=== PATIENT | female | born 1990 | race Two or more races ===

== ENCOUNTER 2017-04-22 13:23 | Emergency (ER) | payer OTHER ==
[2017-04-22 14:12] LABS: BILIRUBIN,URINE NEGATIVE (NEGATIVE); GLUCOSE, URINE (UA) NEGATIVE (NEGATIVE); KETONES,URINE (UA) 40 mg/dL (NEGATIVE); LEUKOCYTE ESTERASE, URINE NEGATIVE (NEGATIVE); NITRITE,URINE NEGATIVE (NEGATIVE); OCCULT BLOOD,URINE NEGATIVE (NEGATIVE); PROTEIN,URINE NEGATIVE (NEGATIVE); UROBILINOGEN,URINE 0.2 (NORMAL) E.U./dL (NORMAL)
[2017-04-22 14:13] LABS: CLARITY,URINE CLEAR (CLEAR)
[2017-04-22 14:16] LABS: HCG UR QUAL NEGATIVE
[2017-04-22 14:24] LABS: BASOPHILS % (AUTO) 0.2 %; EOSINOPHILS # (AUTO) 0.6 10^3/uL (0.0-0.7); EOSINOPHILS % (AUTO) 9.6 %; HGB - HEMOGLOBIN 16.2 g/dL (12.0-16.0); LYMPHOCYTES # (AUTO) 1.4 10^3/uL (1.5-3.5); MEAN CORPUSCULAR HEMOGLOBIN 30.3 pg (27.0-31.0); MEAN CORPUSCULAR HGB CONC 33.7 g/dL (32.0-36.0); MEAN CORPUSCULAR VOLUME 90.1 fL (81.0-99.0); MEAN PLATELET VOLUME 7.8 fL (7.9-10.8); MONOCYTES # (AUTO) 0.4 10^3/uL (0.0-1.0); MONOCYTES % (AUTO) 6.1 %; NEUTROPHILS # (AUTO) 3.7 10^3/uL (1.5-6.6); NEUTROPHILS % (AUTO) 61.1 %; PLT - PLATELET COUNT 204 10^3/uL (130-450); RED BLOOD COUNT 5.33 10^6/uL (4.20-5.40); RED CELL DISTRIBUTION WIDTH 14.1 % (12.0-15.0)
[2017-04-22 14:32] LABS: ALBUMIN 4.2 g/dL (3.2-5.5); ALBUMIN/GLOBULIN RATIO 1.9 (1.0-2.2); BILIRUBIN,TOTAL 1.5 mg/dL (0.2-1.0); CALCIUM 9.3 mg/dL (8.5-10.3); CREATININE 0.7 mg/dL (0.4-1.0); TOTAL PROTEIN 6.4 g/dL (6.7-8.2)
[2017-04-22] MEDS ORDERED: MAG HYDROX/AL HYDROX/SIMETH 30 ML UDC PO STA (15:23)
[2017-04-22] MEDS ORDERED: LIDOCAINE VISCOUS 2% 15 ML UDC MM STA (15:23)
--- NOTE | 2017-04-22 15:29 | ED Physician Documentation ---
PD HPI ABD PAIN - Stated complaint Stated Complaint: ABD PX - Chief complaint Chief Complaint: Abd Pain - History obtained from History obtained from: Patient, Family - History of Present Illness Timing - onset: Other (5 days of waxing and waning upper abdominal pain That is sharp and nonradiating and that worsens after eating and is associated with decreased appetite and loose stools without blood. She has no history of abdominal surgeries. She has been on the keto diet for 6 weeks.) Review of Systems Constitutional: denies: Fever, Chills Cardiac: denies: Chest pain / pressure, Palpitations Respiratory: denies: Dyspnea, Cough PD PAST MEDICAL HISTORY - Present Medications Home Medications: Ambulatory Orders Medication Instructions Recorded Confirmed Magnesium Oxide [Magnesium] 500 mg PO 04/22/17 Omeprazole [PriLOSEC] 20 mg PO DAILY #14 capsule 04/22/17 Pnv95/Ferrous Fumarate/FA 1 each PO 04/22/17 [ Tablet] Potassium Chloride 20 meq PO 04/22/17 - Allergies Allergies/Adverse Reactions: Allergies Allergy/AdvReac Type Severity Reaction Status Date / Time No Known Drug Allergies Allergy Verified 04/22/17 13:42 PD ED PE NORMAL - Vitals Vital signs reviewed: Yes - General General: Alert and oriented X 3, No acute distress - Abdomen Abdomen: Normal bowel sounds, Soft, Other (Very mild upper abdominal tenderness that does not lateralize, negative Arnold sign, no peritoneal signs.) - Neuro Neuro: Alert and oriented X 3, Normal speech - Psych Psych: Normal mood, Normal affect Results - Vitals Vitals: Vital Signs - 24 hr 04/22/17 04/22/17 13:39 15:41 Temperature 36.5 C Heart Rate 95 82 Respiratory 16 12 Rate Blood Pressure 124/76 106/68 O2 Saturation 99 100 Oxygen O2 Source Room air - Labs Labs: Laboratory Tests 04/22/17 04/22/17 04/22/17 14:09 14:14 14:14 WBC 6.0 RBC 5.33 Hgb 16.2 H Hct 48.0 H MCV 90.1 MCH 30.3 MCHC 33.7 RDW 14.1 Plt Count 204 MPV 7.8 L Neut # 3.7 Lymph # 1.4 L Hubbard # 0.4 Eos # 0.6 Baso # 0.0 Absolute Nucleated RBC 0.00 Nucleated RBC % 0.0 Sodium 135 Potassium 3.5 Chloride 101 Carbon Dioxide 23 Anion Gap 11.0 BUN 16 Creatinine 0.7 Estimated GFR (MDRD) 102 Glucose 91 Calcium 9.3 Total Bilirubin 1.5 H AST 21 ALT 19 Alkaline Phosphatase 75 Total Protein 6.4 L Albumin 4.2 Globulin 2.2 Albumin/Globulin Ratio 1.9 Lipase 14 L Urine Color YELLOW Urine Clarity CLEAR Urine pH 6.0 Ur Specific [place] 1.010 Urine Protein NEGATIVE Urine Glucose (UA) NEGATIVE Urine Ketones 40 H Urine Occult Blood NEGATIVE Urine Nitrite NEGATIVE Urine Bilirubin NEGATIVE Urine Urobilinogen 0.2 (NORMAL) Ur Leukocyte Esterase NEGATIVE Ur Microscopic Review NOT INDICATED Urine Culture Comments NOT INDICATED Urine HCG, Qual NEGATIVE PD MEDICAL DECISION MAKING - ED course ED course: She changed her diet and has upper abdominal pain with fairly benign examination. She had complete relief with a GI cocktail here which corroborates with the diagnosis of gastritis. The patient and family were counseled as to the diagnosis and need for follow- up. I counseled the patient with regard to signs and symptoms that would necessitate an urgent reevaluation in the emergency department. They understand they are welcome to return at any time if worse or if not improving as expected. This document was made in part using voice recognition software. While efforts are made to proofread this documents, sound alike and grammatical errors may occur. Departure - Departure Disposition: 01 Home, Self Care Clinical Impression: Gastritis Qualifiers: Gastritis type: superficial Chronicity: acute Gastritis bleeding: without bleeding Qualified Code(s): K29.00 - Acute gastritis without bleeding Condition: Good Record reviewed to determine appropriate education?: Yes Instructions: ED Gastritis Prescriptions: Omeprazole [PriLOSEC] 20 mg PO DAILY #14 capsule Comments: Call your doctor to arrange a follow-up appointment, make the next available appointment. In the interim, return anytime if worse or if new symptoms develop.
[2017-04-22 15:42] VITALS: BP 106/68
== END 2017-04-22 16:45 | disposition home or self-care (01) ==
LOC: ED 13:23
DX: K29.00 Acute gastritis without bleeding (principal)
CPT/HCPCS: 36415; 80053; 81003; 81025; 83690; 85025; 99283; A9270; 81001; 87086

== ENCOUNTER 2017-05-08 07:24 | Outpatient (CLI) | payer OTHER ==
--- NOTE | 2017-05-08 08:34 | Ultrasound Report ---
EXAM: ABDOMEN ULTRASOUND EXAM DATE: 05/08/2017 08:02 AM. CLINICAL HISTORY: ABDOMINAL PAIN. COMPARISON: None. TECHNIQUE: Real-time scanning was performed with static images obtained. FINDINGS: Liver: Normal in size and overall echotexture. 15 cm. Well-circumscribed homogeneous echogenic focus without posterior shadowing in the anteromedial right lobe measures 4.3 x 1.3 x 3.1 cm. Main portal v ein flow: Hepatopetal. Gallbladder: No cholelithiasis or gallbladder wall thickening. No pericholecystic fluid. The patient endorses focal tenderness over the gallbladder. Biliary System: Common bile duct measures 3.8 mm. No intrahepatic or extrahepatic ductal dilatation. Pancreas: Visualized portion is unremarkable. Kidneys: Right: 10.6 cm longitudinally. Normal. No contour-deforming mass, stones, or hydronephrosis. Left: 11.2 cm longitudinally. Normal. No contour-deforming mass, stones, or hydronephrosis. Spleen: 9.1 cm. Normal in size and echotexture. Aorta and Inferior Vena Cava: Unremarkable. Other: None. IMPRESSION: 1. No cholelithiasis or evidence of cholecystitis. The patient does endorse focal tenderness over the gallbladder. 2. Echogenic lesion in the liver. In the absence of a history of liver disease this most likely refle cts a benign hepatic hemangioma. 3. Otherwise normal abdomen ultrasound. [facility] The call report notification system was initiated by Dr. Samson Fermin at 08:27 hrs on 05/08/17. The above findings were discussed with LINCOLN Hinton by Dr. Samson Fermin at 08:33 hrs on 05/08/17. Referring Provider Line: [phone] SITE ID: [id number]
== END 2017-05-08 07:25 | disposition home or self-care (01) ==
LOC: DI 07:24
PROVIDERS: ATTEND Nurse Practitioner Gerontology
DX: K76.9 Liver disease, unspecified (principal)
CPT/HCPCS: 76700

== ENCOUNTER 2017-05-15 08:01 | Outpatient (CLI) | payer OTHER ==
[2017-05-15] MEDS ORDERED: IOPAMIDOL-300 50 ML VIAL ONE (08:51)
[2017-05-15] MEDS ORDERED: IOPAMIDOL-300 100 ML VIAL ONE (08:51)
[2017-05-15 11:30] LABS: HCG UR QUAL NEGATIVE
--- NOTE | 2017-05-17 10:40 | CT Report ---
EXAM: CT ABDOMEN EXAM DATE: 05/15/2017 01:06 PM. CLINICAL HISTORY: Upper abdominal pain for one month. COMPARISON: Ultrasound exam dated 05/08/2017. TECHNIQUE: Routine helical CT imaging was performed through the abdomen. IV contrast: 100 mL Isovue- 370. Enteric contrast: Yes. Reconstruction: Coronal and sagittal. In accordance with CT protocol optimization, one or more of the following dose reduction techniques w ere utilized for this exam: automated exposure control, adjustment of mA and/or KV based on patient s ize, or use of iterative reconstructive technique. FINDINGS: Lung Bases: Unremarkable. Liver: There is a focal area of decreased attenuation along the anterior aspect of the falciform liga ment series 3 image 19 measuring approximately 0.8 x 2.4 cm, typical appearance and location of focal fatty infiltration. Gallbladder/Bile Ducts: Unremarkable. Spleen: Normal. Pancreas: Normal. Adrenal Glands: Normal. Kidneys: Normal. No masses or hydronephrosis. Peritoneal Cavity/Bowel: Normal. No free fluid, free air or adenopathy. No masses or acute inflammato ry process. Vasculature: No aneurysms or other significant abnormality. Bones: No significant abnormality. Other: None. IMPRESSION: No findings to explain the patient's pain. [facility] Referring Provider Line: [phone] SITE ID: [id number]
== END 2017-05-15 08:02 | disposition home or self-care (01) ==
LOC: DI 08:01
PROVIDERS: ATTEND Nurse Practitioner Gerontology
DX: R10.9 Unspecified abdominal pain (principal)
CPT/HCPCS: 74160; 81025; Q9967

== ENCOUNTER 2017-05-18 13:00 | Outpatient (CLI) | payer OTHER ==
[2017-05-18 19:30] LABS: H. PYLORIS ANTIGEN STL NEGATIVE (Negative)
== END 2017-05-18 13:01 | disposition home or self-care (01) ==
LOC: LAB.R 13:00
PROVIDERS: ATTEND Nurse Practitioner Gerontology
DX: R10.9 Unspecified abdominal pain (principal)
CPT/HCPCS: 87338

== ENCOUNTER 2017-07-06 08:00 | Outpatient (CLI) | payer OTHER | END 2017-07-06 08:01 | disposition home or self-care (01) | LOC: LAB.N 08:00 | PROVIDERS: ATTEND Nurse Practitioner | DX: Z33.3 Pregnant state, gestational carrier (principal) | CPT/HCPCS: 36415; 84702 ==

== ENCOUNTER 2017-07-09 13:20 | Outpatient (CLI) | payer OTHER ==
[2017-07-09 19:14] LABS: CALCIUM 8.6 mg/dL (8.5-10.3); CREATININE 0.6 mg/dL (0.4-1.0)
== END 2017-07-09 13:21 ==
LOC: LAB.N 13:20
PROVIDERS: ATTEND Nurse Practitioner
DX: Z33.3 Pregnant state, gestational carrier (principal); R10.9 Unspecified abdominal pain
CPT/HCPCS: 36415; 80048; 84702

== ENCOUNTER 2017-07-28 10:32 | Outpatient (CLI) | payer OTHER ==
[2017-07-28 12:43] LABS: BASOPHILS % (AUTO) 0.2 %; EOSINOPHILS # (AUTO) 0.1 10^3/uL (0.0-0.7); EOSINOPHILS % (AUTO) 1.7 %; HGB - HEMOGLOBIN 12.3 g/dL (12.0-16.0); LYMPHOCYTES # (AUTO) 0.9 10^3/uL (1.5-3.5); LYMPHOCYTES % (AUTO) 20.1 %; MEAN CORPUSCULAR HEMOGLOBIN 31.6 pg (27.0-31.0); MEAN CORPUSCULAR HGB CONC 34.2 g/dL (32.0-36.0); MEAN CORPUSCULAR VOLUME 92.6 fL (81.0-99.0); MEAN PLATELET VOLUME 8.6 fL (7.9-10.8); MONOCYTES # (AUTO) 0.3 10^3/uL (0.0-1.0); MONOCYTES % (AUTO) 5.7 %; NEUTROPHILS # (AUTO) 3.3 10^3/uL (1.5-6.6); NEUTROPHILS % (AUTO) 72.3 %; PLT - PLATELET COUNT 149 10^3/uL (130-450); RED BLOOD COUNT 3.88 10^6/uL (4.20-5.40); RED CELL DISTRIBUTION WIDTH 12.7 % (12.0-15.0); WHITE BLOOD COUNT 4.6 x10^3/uL (4.8-10.8)
[2017-07-28 12:54] LABS: BILIRUBIN,URINE NEGATIVE (NEGATIVE); GLUCOSE, URINE (UA) NEGATIVE (NEGATIVE); KETONES,URINE (UA) NEGATIVE (NEGATIVE); LEUKOCYTE ESTERASE, URINE NEGATIVE (NEGATIVE); NITRITE,URINE NEGATIVE (NEGATIVE); OCCULT BLOOD,URINE NEGATIVE (NEGATIVE); PH,URINE 6.5 PH (5.0-7.5); PROTEIN,URINE NEGATIVE (NEGATIVE); UROBILINOGEN,URINE 0.2 (NORMAL) E.U./dL (NORMAL)
[2017-07-28 12:55] LABS: CLARITY,URINE CLEAR (CLEAR)
[2017-07-28 13:15] LABS: BACTERIA,URINE Rare /HPF (None Seen); RBC,URINE 0-5 /HPF (0-5); SQUAMOUS EPITHELIAL CELL,UR FEW Squamous (<= Few)
[2017-07-29 14:49] LABS: HEPATITIS C ANTIBODY NON-REACTIVE (NON-REACTIVE)
[2017-07-29 14:56] LABS: HEPATITIS B SURFACE ANTIGEN NON-REACTIVE (NON-REACTIVE)
[2017-07-29 15:20] LABS: HIV AG/AB 4TH GEN NON-REACTIVE (NON-REACTIVE)
== END 2017-07-28 10:33 | disposition home or self-care (01) ==
LOC: LAB.N 10:32
PROVIDERS: ATTEND Obstetrics & Gynecology
DX: Z34.81 Encounter for supervision of other normal pregnancy, first trimester (principal)
CPT/HCPCS: 36415; 81001; 81599; 85025; 86592; 86762; 86803; 86850; 86900; 86901; 87340; 87389

== ENCOUNTER 2017-08-17 16:27 | Emergency (ER) | payer OTHER ==
[2017-08-17 16:59] VITALS: BP 101/52
--- NOTE | 2017-08-17 17:59 | ED Physician Documentation ---
PD HPI FEMALE - Stated complaint Stated Complaint: 11 WKS PREG/CRAMPING/SPOTTING - Chief complaint Chief Complaint: Abd Pain - History obtained from History obtained from: Patient - History of Present Illness Timing - onset: Today Timing - duration: Hours Timing - details: Gradual onset, Waxing and waning (cramping lower abd pains and had some brownish vaginal bleeding (slightly more than spotting, per patient ).) Associated symptoms: Pelvic pain, Vaginal bleeding. No: Fever, Vaginal discharge Contributing factors: Similar symptoms before: Has not had sx before Review of Systems Constitutional: denies: Fever, Chills Nose: denies: Rhinorrhea / runny nose, Congestion Throat: denies: Sore throat Respiratory: denies: Cough GI: reports: Nausea. denies: Vomiting, Diarrhea : denies: Dysuria, Frequency, Discharge PD PAST MEDICAL HISTORY - Past Medical History Cardiovascular: None Respiratory: None Neuro: None Endocrine/Autoimmune: None - Present Medications Home Medications: Ambulatory Orders Medication Instructions Recorded Confirmed Magnesium Oxide [Magnesium] 500 mg PO 04/22/17 Omeprazole [PriLOSEC] 20 mg PO DAILY #14 capsule 04/22/17 Pnv95/Ferrous Fumarate/FA 1 each PO 04/22/17 [ Tablet] Potassium Chloride 20 meq PO 04/22/17 - Allergies Allergies/Adverse Reactions: Allergies Allergy/AdvReac Type Severity Reaction Status Date / Time No Known Drug Allergies Allergy Verified 04/22/17 13:42 - Social History Does the pt smoke?: No Smoking Status: Never smoker PD ED PE NORMAL - Vitals Vital signs reviewed: Yes - General General: Alert and oriented X 3, No acute distress, Well developed/nourished - Cardiac Cardiac: RRR, No murmur - Respiratory Respiratory: Clear bilaterally - Abdomen Abdomen: Normal bowel sounds, Soft, Non tender - Female Female : Deferred - Rectal Rectal: Deferred - Back Back: No CVA TTP - Derm Derm: Normal color, Warm and dry - Extremities Extremities: No tenderness to palpate, No edema, No calf tenderness / cord - Neuro Neuro: Alert and oriented X 3, No motor deficit, Normal speech Results - Vitals Vitals: Oxygen O2 Source Room air - Labs Labs: Laboratory Tests 08/17/17 18:00 Urine Color YELLOW Urine Clarity SL. CLOUDY Urine pH 6.0 Ur Specific [place] 1.020 Urine Protein NEGATIVE Urine Glucose (UA) NEGATIVE Urine Ketones NEGATIVE Urine Occult Blood SMALL H Urine Nitrite NEGATIVE Urine Bilirubin NEGATIVE Urine Urobilinogen 0.2 (NORMAL) Ur Leukocyte Esterase NEGATIVE Urine RBC 0-5 Urine WBC 0-3 Ur Squamous Epith Cells RARE Squamous Amorphous Sediment Marked Urine Bacteria None Seen Ur Microscopic Review INDICATED Urine Culture Comments NOT INDICATED PD MEDICAL DECISION MAKING - ED course Complexity details: reviewed results (bedside U/S showing normal IUP with good FHR and no pelvic free fluid. ), considered differential, d/w patient - Sepsis Event Vital Signs: Oxygen O2 Source Room air Departure - Departure Disposition: Home, Self Care Clinical Impression: Bleeding in early Qualifiers: Weeks of gestation: 11 weeks Qualified Code(s): Z3A.11 - 11 weeks gestation of Condition: Stable Record reviewed to determine appropriate education?: Yes Instructions: Bleeding Early Preg Follow-Up: [facility] [Provider Group] Comments: The baby looks good at this time. Drink lots of fluids. Tylenol or ibuprofen if needed for cramps or pains. This could possibly relate to the travel or under hydration. Relaxant drink lots of fluids tonight. Regular activity tomorrow if you are feeling well. Return if worse pain, bleeding, fevers or other concerns. Discharge Date/Time: 08/17/17 18:43
[2017-08-17 18:10] LABS: BILIRUBIN,URINE NEGATIVE (NEGATIVE); GLUCOSE, URINE (UA) NEGATIVE (NEGATIVE); KETONES,URINE (UA) NEGATIVE (NEGATIVE); LEUKOCYTE ESTERASE, URINE NEGATIVE (NEGATIVE); NITRITE,URINE NEGATIVE (NEGATIVE); OCCULT BLOOD,URINE SMALL (NEGATIVE); PROTEIN,URINE NEGATIVE (NEGATIVE); UROBILINOGEN,URINE 0.2 (NORMAL) E.U./dL (NORMAL)
[2017-08-17 18:12] LABS: CLARITY,URINE SL. CLOUDY (CLEAR)
[2017-08-17 19:00] LABS: AMORPHOUS SEDIMENT,UR Marked /LPF; BACTERIA,URINE None Seen /HPF (None Seen); RBC,URINE 0-5 /HPF (0-5); SQUAMOUS EPITHELIAL CELL,UR RARE Squamous (<= Few)
== END 2017-08-17 18:43 | disposition home or self-care (01) ==
LOC: ED 16:27
DX: O46.91 Antepartum hemorrhage, unspecified, first trimester (principal); Z3A.11 11 weeks gestation of pregnancy
CPT/HCPCS: 81001; 81003; 87086; 99283

== ENCOUNTER 2017-09-17 14:44 | Outpatient (CLI) | payer OTHER | END 2017-09-17 14:45 | disposition home or self-care (01) | LOC: LAB.N 14:44 | PROVIDERS: ATTEND Obstetrics & Gynecology | DX: Z13.79 Encounter for other screening for genetic and chromosomal anomalies (principal) | CPT/HCPCS: 36415; 81599 ==

== ENCOUNTER 2017-10-21 07:27 | Outpatient (CLI) | payer OTHER ==
--- NOTE | 2017-10-21 09:59 | Ultrasound Report ---
Procedure Date: 10/21/2017 Accession Number: [id number] / [id number] Procedure: US - OB Detailed Eval CPT Code: FULL RESULT: EXAM: COMPLETE OBSTETRICAL ULTRASOUND EXAM DATE: 10/21/2017 09:01 AM. CLINICAL HISTORY: anatomic survey. COMPARISON: None. TECHNIQUE: Real-time sonographic evaluation of the fetus performed by the supervisor metal placing. Multiple aircraft sales representative static images were saved for review. DATING: Established EGA 20 weeks 2 days with BERNADINE 03/08/2018 based on outside physician. EGA 21 weeks 0 days with BERNADINE 03/03/2018 based on the current ultrasound. GENERAL EVALUATION Fernandez . Cardiac activity: 146 bpm. movement: Present. Presentation: Breech. Placenta: Posterior with fundal wrap. No evidence for previa. Umbilical cord: 3 vessel cord. Central placental cord origin. Amniotic fluid: Subjectively normal. MVP cm. BIOMETRY Bi-Parietal Diameter (BPD): 49.2 cm, 20 weeks 6 days Head Circumference (HC): 18.4 cm, 20 weeks 5 days Abdominal Circumference (AC): 167.7 cm, 21 weeks 5 days Femur Length (FL): 34.3 cm, 20 weeks 6 days Estimated Weight: 411 gm, 91st percentile. ANATOMY The intracranial structures, profile, face/nose/lips, spine, 4 chamber heart and outflow tracts, stomach, abdominal wall and cord insertion, diaphragm, kidneys, bladder, and extremities were visualized and demonstrate no abnormality. MATERNAL STRUCTURES Uterus: Unremarkable. Cervix: Long and closed. Transabdominal length 3.5 cm. Right ovary/adnexa: Unremarkable. Left ovary/adnexa: Unremarkable. Free fluid: None. IMPRESSION: 1. Fernandez intrauterine with gestational age 21 weeks 0 days based on composite ultrasound measurements today. 2. Normal anatomic survey. No anatomic abnormalities are detected at this time. [facility]
== END 2017-10-21 07:28 | disposition home or self-care (01) ==
LOC: DI 07:27
PROVIDERS: ATTEND Obstetrics & Gynecology
DX: Z36.9 Encounter for antenatal screening, unspecified (principal)
CPT/HCPCS: 76811

== ENCOUNTER 2017-12-07 09:49 | Outpatient (CLI) | payer OTHER ==
[2017-12-07 12:49] LABS: HB2 TOTAL 12.6 g/dL; HEMOGLOBIN A1C 0.37 g/dL; HEMOGLOBIN A1C % 4.8 % (4.6-6.2)
[2017-12-07 13:06] LABS: HGB - HEMOGLOBIN 12.5 g/dL (12.0-16.0); MEAN CORPUSCULAR HEMOGLOBIN 32.5 pg (27.0-31.0); MEAN CORPUSCULAR HGB CONC 34.3 g/dL (32.0-36.0); MEAN CORPUSCULAR VOLUME 94.6 fL (81.0-99.0); MEAN PLATELET VOLUME 8.7 fL (7.9-10.8); RED BLOOD COUNT 3.86 10^6/uL (4.20-5.40); WHITE BLOOD COUNT 5.3 x10^3/uL (4.8-10.8)
== END 2017-12-07 09:50 | disposition home or self-care (01) ==
LOC: LAB.N 09:49
PROVIDERS: ATTEND Obstetrics & Gynecology
DX: Z34.90 Encounter for supervision of normal pregnancy, unspecified, unspecified trimester (principal)
CPT/HCPCS: 36415; 82950; 83036; 85027; 86850

== ENCOUNTER 2018-02-14 08:00 | Outpatient (CLI) | payer OTHER | END 2018-02-14 23:59 | disposition home or self-care (01) | LOC: LAB.R 08:00 | PROVIDERS: ATTEND Obstetrics & Gynecology | DX: Z36.85 Encounter for antenatal screening for Streptococcus B (principal); Z33.1 Pregnant state, incidental | CPT/HCPCS: 87081 ==

== ENCOUNTER 2018-03-06 21:03 | Outpatient (CLI) | payer OTHER ==
[2018-03-06 21:34] VITALS: BP 128/77
== END 2018-03-06 22:20 | disposition home or self-care (01) ==
LOC: WFO 21:03 → FBP 21:06 → WFO 22:20
PROVIDERS: ATTEND Obstetrics & Gynecology
DX: O99.89 Other specified diseases and conditions complicating pregnancy, childbirth and the puerperium (principal); M54.9 Dorsalgia, unspecified; Z3A.39 39 weeks gestation of pregnancy
CPT/HCPCS: 99212

== ENCOUNTER 2018-03-07 08:17 | Inpatient (IN) | payer OTHER ==
--- NOTE | 2018-03-07 07:55 | HISTORY & PHYSICAL EXAMINATION ---
DATE OF SERVICE: 03/07/2018 Physician: Lucien Balbuena MD DIAGNOSIS: A 39-week, 6-day gestation, unremitting sciatica, induction of labor. HISTORY OF PRESENT ILLNESS: Patient is a 27-year-old , 2, para 1 (status post vaginal delivery in 2017), who presented last night complaining of sciatica and unremitting back pain. There was subtle cervical change from her baseline, and she effaced to 80% and was 2 cm and 0 station. The back pain and sciatica compromised her daily life. Her EDC is 03/08/2018 based on early ultrasound. This has been essentially unremarkable. No current signs or symptoms of preeclampsia. No recent illnesses fevers or UTI symptoms. Patient reports irregular contractions and no suspicion of leaking membranes. BASELINE LABS: Glucose challenge test 115. We will obtain [facility] records for remainder of labs. PAST MEDICAL HISTORY: Patient denies chronic disease history. ALLERGIES: NO KNOWN DRUG ALLERGIES. MEDICATIONS: vitamins and iron. FAMILY HISTORY: Denies inheritable diseases or congenital malformations. REVIEW OF SYSTEMS CONSTITUTIONAL: Negative. HEENT: Negative. LUNGS: Negative. CARDIAC: Negative. GASTROINTESTINAL: Negative. GENITOURINARY: Negative. No STD history or discharge. MUSCULOSKELETAL: Right-sided sciatic pain. SKIN: Negative. ENDOCRINE: Negative. HEMATOLOGIC: Negative. PHYSICAL EXAMINATION GENERAL: Well groomed, pleasant. VITAL SIGNS: Posted. HEENT: Moist mucous membranes. NECK: Supple. No thyromegaly. BREASTS: Deferred. LUNGS: Clear to auscultation. CARDIAC: Regular. No murmur, no gallop. GASTROINTESTINAL: No epigastric tenderness. UTERUS: Acontractile, no increased tone or tenderness. Estimated weight = 8 pounds to 8.5 pounds PELVIC: External genitalia negative. Vagina: No blood or discharge. Cervix: 2 cm, 30%. Bony pelvis adequate: Obstetrical conjugate greater than 12.5, bituberous diameter +10.5, normal arch. EXTREMITIES: No edema. Normal range of motion. SKIN: Negative. MUSIC MANAGER: Grossly intact. External heart tracin; moderate variability; no decelerations; rare contractions ADMISSION LABS: Pending ASSESSMENT: Patient is plagued by pain, which prompts induction. Triplett score = +6. No worrisome changes on heart tracing. Patient is an appropriate candidate for induction PLAN: Induction with [employer] initially. I anticipate need for Pitocin and/or AROM later. Benefits of induction and risk: slightly higher than normal risk, possibility of distress and emergent , failed or prolonged induction, and slightly increased chance of chorion amnionitis if induction is prolonged. All questions were answered, and informed consent paperwork was signed. TD: 03/07/2018 07:06 REVISED 03/07/2018 [email or web address] account correction Orig. signed 03/07/18@0927 LEON
[~2018-03-07 08:17] MED LIST: CARBOPROST TROMETHAMINE 250 MCG/ML AMP IM PRN; METHYLERGONOVINE 0.2 MG/ML AMP IM PRN; METOCLOPRAMIDE 10 MG TABLET PO PRN; METOCLOPRAMIDE 10 MG/2 ML VIAL IVP PRN; ONDANSETRON 4 MG/2 ML VIAL IVP PRN; ONDANSETRON ODT 4 MG TABLET TL PRN; SODIUM CHLORIDE FLUSH 0.9% 10 ML SYRINGE IVP PRN; fentaNYL 100 MCG/2 ML VIAL IVP PRN; miSOPROStol 200 MCG TABLET PR ONE; miSOPROStol 200 MCG TABLET PR PRN
[2018-03-07 09:00] LABS: BASOPHILS % (AUTO) 0.5 %; EOSINOPHILS # (AUTO) 0.1 10^3/uL (0.0-0.7); EOSINOPHILS % (AUTO) 1.3 %; HGB - HEMOGLOBIN 13.7 g/dL (12.0-16.0); LYMPHOCYTES # (AUTO) 1.1 10^3/uL (1.5-3.5); LYMPHOCYTES % (AUTO) 18.8 %; MEAN CORPUSCULAR HEMOGLOBIN 31.9 pg (27.0-31.0); MEAN CORPUSCULAR HGB CONC 34.6 g/dL (32.0-36.0); MEAN CORPUSCULAR VOLUME 92.2 fL (81.0-99.0); MEAN PLATELET VOLUME 9.3 fL (7.9-10.8); MONOCYTES # (AUTO) 0.4 10^3/uL (0.0-1.0); MONOCYTES % (AUTO) 6.6 %; NEUTROPHILS # (AUTO) 4.1 10^3/uL (1.5-6.6); NEUTROPHILS % (AUTO) 72.8 %; PLT - PLATELET COUNT 118 10^3/uL (130-450); RED BLOOD COUNT 4.29 10^6/uL (4.20-5.40); RED CELL DISTRIBUTION WIDTH 13.1 % (12.0-15.0); WHITE BLOOD COUNT 5.6 x10^3/uL (4.8-10.8)
[2018-03-07] MEDS ORDERED: SODIUM CHLORIDE FLUSH 0.9% 10 ML SYRINGE IVP SCH (09:00)
[2018-03-07] MEDS ORDERED: OXYTOCIN/SODIUM CHLORIDE 500 ML IV SCH ×2 (09:00→19:00)
[2018-03-07] MEDS ORDERED: miSOPROStol 100 MCG TABLET VG SCH (09:00)
[2018-03-07] MEDS: LACTATED RINGERS 1,000 ML IV SCH ×2 (12:35→14:41)
[2018-03-07] MEDS ORDERED: fent/BUPIV 2 MCG/0.125% 250 ML EP ONE (12:56)
[2018-03-07] MEDS ORDERED: ONDANSETRON 4 MG/2 ML VIAL IVP PRN (13:34)
[2018-03-07] MEDS ORDERED: NALOXONE 0.4 MG/ML VIAL IVP PRN (13:34)
[2018-03-07] MEDS ORDERED: LACTATED RINGERS 500 ML IV ONE (13:34)
[2018-03-07] MEDS ORDERED: diphenhydrAMINE INJ 50 MG/ML VIAL IVP PRN (13:34)
[2018-03-07] MEDS ORDERED: METOCLOPRAMIDE 10 MG/2 ML VIAL IVP PRN (13:34)
[2018-03-07] MEDS ORDERED: NALBUPHINE 10 MG/ML AMP IVP PRN (13:34)
[2018-03-07] MEDS ORDERED: ePHEDrine 50 MG/ML VIAL IVP PRN (13:34)
--- NOTE | 2018-03-07 13:37 | ANESTHESIA ---
Pre-Anesthesia VS, & Labs - Diagnosis Active labor - Procedure Labor epidural Vital Signs: Temp Pulse Resp BP Pulse Ox 36.9 C 97 18 134/76 H 100 03/07/18 08:40 03/07/18 08:40 03/07/18 08:40 03/07/18 08:40 03/07/18 08:40 Height 5 ft 5 in Weight (kg) 82.1 kg Body Mass Index 22.9 - NPO Other - Is Patient ?: Yes - Lab Results Current Lab Results: Laboratory Tests 03/07/18 08:50: WBC 5.6, RBC 4.29, Hgb 13.7, Hct 39.6, MCV 92.2, MCH 31.9 H, MCHC 34.6, RDW 13.1, Plt Count 118 L, MPV 9.3, Neut # (Auto) 4.1, Lymph # (Auto) 1.1 L, Ray # (Auto) 0.4, Eos # (Auto) 0.1, Baso # (Auto) 0.0, Absolute Nucleated RBC 0.00, Nucleated RBC % 0.1 Lab results reviewed: Yes Fish Bones: 03/07/18 08:50 Home Medications and Allergies Active Medications Acetaminophen (Tylenol) 650 mg PO Q6H PRN PRN Reason: Pain or Fever Carboprost Tromethamine (Hemabate) 250 mcg IM ONCE PRN PRN Reason: Post- Hemorrhage Stop: 03/10/18 08:01 Diphenhydramine HCl (Benadryl Inj) 12.5 - 25 mg IVP Q6HR PRN PRN Reason: ITCHING Ephedrine Sulfate () 5 mg IVP Q5M PRN PRN Reason: For SBP<100;give until SBP>100 Fentanyl (Fentanyl) 50 mcg IVP Q1H PRN PRN Reason: PAIN Lactated Ringer's (Lr) 1,000 mls @ 100 mls/hr IV .Q10H BRIAN Last Infusion: 03/07/18 13:05 Dose: 250 mls/hr Oxytocin/Sodium Chloride (Pitocin/Sodium Chloride) 500 mls @ 1 mls/hr IV TITR BRIAN; Protocol Lactated Ringer's (Lr) 500 mls @ 999 mls/hr IV ONCE ONE Stop: 03/07/18 14:04 Methylergonovine Maleate (Methergine Inj) 0.2 mg IM Q4H PRN PRN Reason: Post- Hemorrhage Metoclopramide HCl (Reglan) 10 mg PO Q6H PRN PRN Reason: Nausea / Vomiting Metoclopramide HCl (Reglan Inj) 10 mg IVP Q6H PRN PRN Reason: Nausea / Vomiting Metoclopramide HCl (Reglan Inj) 10 mg IVP Q6HR PRN PRN Reason: Nausea / Vomiting Misoprostol (Cytotec) 800 mcg OH ONCE PRN PRN Reason: Post- Hemorrhage Stop: 03/09/18 08:01 Misoprostol (Cytotec) 50 mcg BC Q4HR BRIAN Nalbuphine HCl (Nubain) 2.5 - 5 mg IVP Q4H PRN PRN Reason: ITCHING Naloxone HCl (Narcan) 0.1 mg IVP Q2M PRN PRN Reason: RR<8 Ondansetron HCl (Zofran Inj) 4 mg IVP Q4HR PRN PRN Reason: Nausea / Vomiting Ondansetron HCl (Zofran Odt) 4 mg TL Q4HR PRN PRN Reason: Nausea / Vomiting Ondansetron HCl (Zofran Inj) 4 mg IVP Q6HR PRN PRN Reason: Nausea / Vomiting Sodium Chloride (Normal Saline Flush 0.9%) 10 ml IVP 0100,0900,1700 BRIAN Sodium Chloride (Normal Saline Flush 0.9%) 10 ml IVP PRN PRN PRN Reason: NEEDED PER PROVIDER ORDERS Magnesium Oxide [Magnesium] 500 mg PO 04/22/17 Pnv95/Ferrous Fumarate/FA [ Tablet] 1 each PO 04/22/17 Potassium Chloride 20 meq PO 04/22/17 Allergies/Adverse Reactions: Allergies Allergy/AdvReac Type Severity Reaction Status Date / Time No Known Drug Allergies Allergy Verified 04/22/17 13:42 Anes History & Medical History - Anesthetic History Anesthesia Complications: reports: No previous complications Family history of Anesthesia Complications: Denies Family history of Malignant Hyperthermia: Denies - Medical History Cardiovascular: reports: None Pulmonary: reports: None Gastrointestinal: reports: None Urinary: reports: None Neuro: reports: None Musculoskeletal: reports: None Endocrine/Autoimmune: reports: None Blood Disorders: reports: None Skin: reports: None Smoking Status: Never smoker Exam General: Alert Mouth Opening: Greater than 4 Fingerbreadths Neck Mobility: Normal Mallampati classification: I Thyromental Distance: greater than 6 cm Respiratory: Lungs clear Plan Anesthesia Type: Epidural Consent for Procedure(s) Verified and Reviewed: Yes Code Status: Attempt Resuscitation ASA classification: 2-Mild systemic disease Is this case an emergency?: Yes (active labor)
[2018-03-07] MEDS: ACETAMINOPHEN 325 MG TABLET PO PRN ×2 (14:04→21:20)
[2018-03-07] MEDS ORDERED: fentaNYL 100 MCG/2 ML VIAL ONE (17:57)
[2018-03-07] MEDS ORDERED: ROPIVACAINE 0.2% PF 20 ML AMPULE ONE (17:58)
[2018-03-07] MEDS ORDERED: LIDOCAINE 1% 2 ML VIAL SUBQ ONE (19:00)
[2018-03-07] MEDS ORDERED: LIDOCAINE 1% 50 ML MDV ONE (19:53)
[2018-03-07] MEDS ORDERED: BUFFERED LIDOCAINE 10 ML SYRINGE SUBQ STA (20:34)
[2018-03-07] MEDS ORDERED: MAGNESIUM HYDROXIDE 2,400 MG/30 ML UDC PO PRN (20:58)
[2018-03-07] MEDS ORDERED: ZOLPIDEM 5 MG TABLET PO PRN (20:58)
[2018-03-07] MEDS ORDERED: HYDROCORTISONE/PRAMOXINE 10 GM PR PRN (20:58)
[2018-03-07] MEDS ORDERED: WITCH HAZEL/GLYCERIN 1 EACH MED..PAD TOP PRN (20:58)
[2018-03-07] MEDS ORDERED: diphenhydrAMINE 25 MG CAPSULE PO PRN (20:58)
[2018-03-07] MEDS ORDERED: LACTATED RINGERS 1,000 ML IV SCH (21:00)
[2018-03-07] MEDS: IBUPROFEN 600 MG TABLET PO SCH (21:21)
[2018-03-07] MEDS: DOCUSATE SODIUM 100 MG CAPSULE PO SCH (21:38)
[2018-03-08] MEDS: IBUPROFEN 600 MG TABLET PO SCH ×4 (02:59→21:29)
[2018-03-08] MEDS: miSOPROStol 100 MCG TABLET BC SCH (03:31)
[2018-03-08] MEDS: HYDROcod/ACETAM 5/325 MG TABLET PO PRN ×4 (07:03→19:37)
[2018-03-08] MEDS ORDERED: HYDROCORTISONE 1% CREAM 28 GM TUBE PR PRN (08:07)
--- NOTE | 2018-03-08 08:22 | DELIVERY NOTE ---
Delivery Note - Labor Labor: positive: Other (Cytotec ripening and induction) - Delivery Method Infant Delivery Method: positive: Vacuum assist - Cervical Ripening Method Cervical Ripening Method: positive: Misoprostil - Presentation Presentation: positive: ROP - right occiput posterior - Nuchal Cord Nuchal Cord: positive: None - Anesthetic Anesthetic Type: Anesthetic: positive: Lidocaine - 1% plain Volume: positive: Other (25 cc) - Amniotic Fluid Description Amniotic Fluid Description: positive: Clear - Vacuum Use Indication for Vacuum Use: positive: Suspicion of immediate or potential compromise (During the second stage of labor tachycardia developed to the 170s up to 180 with minimal variability.) Type of Vacuum Cup: positive: Cup: Rigid (Kiwi rigid cup) Vacuum Extraction: positive: Successful Number of pop-offs: 1 - Episiotomy Type Episiotomy Type: positive: None - Laceration Laceration: positive: 2nd degree (Midline laceration was 3.5 cm in length and 1.5 cm in depth; it extended from the perineum and into the vagina. Neither the rectum nor rectal sphincter were involved) - Suture Suture Type: positive: Vicryl Suture Size: positive: 2-0, 3-0 - Delivery Outcome Delivery Outcome: positive: Livebirth - [place]: positive: Placed in direct skin contact with mother, Bulb syringe, Stimulated, Warmed, Warmer used (Dr. Lo pediatrics in by to attend to . Reference is notes Essentially moved all 4 extremities well had a asymmetric facial movement. There was superficial abrasion of the scalp from vacuum noted) sex: positive: Male ( time 2015 hrs. Living male weighing 44-50 g (10 pounds 0 ounces) Apgars 9/9 Venous blood gas pH = 7.32; base excess -5.2 Arterial blood gas drawn but results not found) - Cord Cord: positive: 3 vessels (No cord entanglement) - Placenta Placenta: positive: Intact (Grade 2 placenta) - Estimated Blood Loss Estimated Blood Loss (in cc): 450 - Post Delivery Events Post Delivery Events: positive: No post delivery events - Delivery Comments (Free Text/Narrative) Delivery Comments (Free Text/Narrative): Mrs. Nina began pushing at 1940 hrs. she monitored a good effort but was slow to bring the head to the perineum. This was due to a persistent right occiput posterior presentation. With manual rotation effort and pushing it was rotated to the OA. However, her heart tones deteriorated with a baseline rising to 160-175-180 periodically with decreased/minimal variability at times. The pelvis and fetus EFW were reevaluated. The pelvis seemed adequate for a 9 pound baby and the fetus was thought to be greater than the initial EFW of 8.5 pounds, probably 9 - 9.5 pounds or greater. Patient continued to push with good effort. Stretch & push method was used and perineum judged adequately pliable.. The descent was slow but present.. Pediatrics was notified and came to the delivery suite. Anesthesia, director medical surgical and OR crew were alerted and came to the hospital preparation for either a operative delivery or section. Vacuum delivery was proposed to the patient. There was a detailed informed consent that included risks of traumatic delivery, shoulder dystocia, emergency section, maternal pain, and damage. This was compared against a anticipated difficult section that would include excessive blood loss, anatomic damage, and possible compromise. All questions from mother and father were answered. Patient then elected to move forward with vacuum trial. Kiwi vacuum cup was applied to the flexion point and pumped into the green zone. 15 cc of lidocaine 1% were injected into the perineum in preparation of possible RML episiotomy. Upon of pushing moderate traction was placed respecting the axis of the pelvis and the head progressed forward into extension as anticipated. Towards the end of the traction there was a pop off. Patient & were very anxious. The vacuum was re-pumped to the green zone and the head successfully delivered over perineum without episiotomy. There was no nuchal cord. Shoulders were tight but no shoulder dystocia was present. An 8 was placed on maternal abdomen. Cord was doubly clamped and transected. Cord blood gases were taken. was handed off to pediatrics for assessment. Inspection of the perineum found a second-degree laceration. The vaginal tube was reconstructed with a running stitch of 2-0 Vicryl. Perinal body was rec onstructed with multiple stitches of 2-0 Vicryl and perineum skin was closed with multiple vertical mattress stitches of 3-0 Vicryl. Additional lidocaine was injected for comfort. Shortly after closure placenta was expelled spontaneously intact. Due to prior bout of fever (38 C) placenta was sent to pathology after cultures were taken from the amniotic membranes uterus responded well to massage and Pitocin. Mother infant and father all bonded together well. Final sponge needle and instrument count was confirmed as correct..
--- NOTE | 2018-03-08 08:45 | PROVIDER PROGRESS NOTE ---
Subjective - General Admit Date: 03/07/18 Procedure Date: 03/07/18 Post Op Days: 1 Procedure Performed: Operative vaginal delivery, vacuum - Review of Systems Wound/Incisions: positive: Healing well General: positive: Weakness, Fatigue HEENT: positive: No symptoms Pulmonary: positive: No symptoms Cardiovascular: positive: No symptoms Gastrointestinal: positive: No symptoms, Other (No flatus as of yet, patient apprehensive about bowel movement) Genitourinary: positive: No symptoms Musculoskeletal: positive: No symptoms Skin: positive: No symptoms Psychiatric: positive: Anxiety (Patient trying to process dramatic events of low vacuum delivery. We discussed need for verbal expression and processing. Patient encouraged to continue discussions with nursing staff) Objective - Patient Data Vital Signs: Vital Signs x48h Temp Pulse Resp BP Pulse Ox 03/08/18 07:26 98.1 F 76 16 115/66 98 03/08/18 03:08 98.6 F 99 16 104/59 L 99 Weight: Weight 03/06/18 03/07/18 03/08/18 23:59 23:59 23:59 Weight (kg) 82.1 kg Intake & Output: Intake and Output Totals x24h 03/06/18 03/07/18 03/08/18 23:59 23:59 23:59 Intake Total 891.167 800 Output Total 800 950 Balance 91.167 -150 - Lab Results Lab Results: 03/08/18 10:06 Other Lab Results: Lab Results x24hrs 03/07/18 Range/Units 08:50 WBC 5.6 (4.8-10.8) x10^3/uL RBC 4.29 (4.20-5.40) 10^6/uL Hgb 13.7 (12.0-16.0) g/dL Hct 39.6 (37.0-47.0) % MCV 92.2 (81.0-99.0) fL MCH 31.9 H (27.0-31.0) pg MCHC 34.6 (32.0-36.0) g/dL RDW 13.1 (12.0-15.0) % Plt Count 118 L (130-450) 10^3/uL MPV 9.3 (7.9-10.8) fL Neut # (Auto) 4.1 (1.5-6.6) 10^3/uL Lymph # (Auto) 1.1 L (1.5-3.5) 10^3/uL [place] # (Auto) 0.4 (0.0-1.0) 10^3/uL Eos # (Auto) 0.1 (0.0-0.7) 10^3/uL Baso # (Auto) 0.0 (0.0-0.1) 10^3/uL Absolute Nucleated RBC 0.00 x10^3/uL Nucleated RBC % 0.1 /100WBC - Current Medications Current Medications: Current Medications Generic Name Dose Route Start Last Admin Trade Name Freq PRN Reason Stop Dose Admin Acetaminophen 650 mg 03/07/18 08:02 03/07/18 21:20 Tylenol PO 650 mg Q6H PRN Administration Pain or Fever Hydrocodone Bitart/Acetaminophen 1 tab 03/07/18 20:58 03/08/18 07:03 [place] 5/325 PO 1 tab Q4HR PRN Administration PAIN Docusate Sodium 100 mg 03/07/18 21:00 03/07/18 21:38 Colace 100mg Capsule PO Not Given BID BRIAN Ibuprofen 600 mg 03/07/18 21:00 03/08/18 02:59 Motrin PO 600 mg Q6H BRIAN Administration Physical Exam - Physical Exam General: positive: No acute distress, Alert HEENT: positive: Moist mucous membranes Neck: positive: Supple w/out meningeal sx Cardiac: positive: Regular Rate Resipratory: positive: Clear to ausultation france Abdomen: positive: Normal Bowel sounds Female : positive: Normal external (External sutures reported intact), Enlarged uterus (17-week size uterus mildly tender) Extremities: positive: No pedal edema, Non tender Skin: positive: Warm and dry Neurologic: positive: Alert and Oriented X 3, Normal motor/no weakness, Normal Sensation, Normal Speech PSYCH: positive: Anxious Assessment/Plan - Assessment/Plan Assessment: Patient recovering well after low vacuum delivery of macrosomic . Vital signs stable and rubra lochia normal amount. Patient still is shaken from difficult vacuum delivery. Pain is in control. Plan: 1. Continue supportive care inclusive of perineal icing and later sits baths 2. Continue psychological support to help patient process and emotionally recover from difficult delivery. 3. Encourage walking and activity.
[2018-03-08] MEDS: DOCUSATE SODIUM 100 MG CAPSULE PO SCH ×2 (09:16→21:31)
[2018-03-08 10:13] LABS: BASOPHILS % (AUTO) 0.3 %; EOSINOPHILS % (AUTO) 0.4 %; HGB - HEMOGLOBIN 13.5 g/dL (12.0-16.0); LYMPHOCYTES # (AUTO) 1.1 10^3/uL (1.5-3.5); LYMPHOCYTES % (AUTO) 11.8 %; MEAN CORPUSCULAR HGB CONC 34.7 g/dL (32.0-36.0); MEAN CORPUSCULAR VOLUME 92.2 fL (81.0-99.0); MEAN PLATELET VOLUME 9.1 fL (7.9-10.8); MONOCYTES # (AUTO) 0.6 10^3/uL (0.0-1.0); MONOCYTES % (AUTO) 6.4 %; NEUTROPHILS # (AUTO) 7.3 10^3/uL (1.5-6.6); NEUTROPHILS % (AUTO) 81.1 %; PLT - PLATELET COUNT 129 10^3/uL (130-450); RED BLOOD COUNT 4.23 10^6/uL (4.20-5.40); RED CELL DISTRIBUTION WIDTH 13.6 % (12.0-15.0); WHITE BLOOD COUNT 9.1 x10^3/uL (4.8-10.8)
[2018-03-08] MEDS ORDERED: BACITRACIN OINT TOP ONE (20:19)
[2018-03-08] MEDS: ACETAMINOPHEN 325 MG TABLET PO PRN (23:25)
[2018-03-09] MEDS: IBUPROFEN 600 MG TABLET PO SCH (04:34)
[2018-03-09] MEDS: ACETAMINOPHEN 325 MG TABLET PO PRN (06:07)
--- NOTE | 2018-03-09 06:23 | DISCHARGE SUMMARY ---
Physician: Lucien Balbuena MD DATE OF ADMISSION: 03/07/2018 DATE OF DISCHARGE: 03/09/2018 DRAFT DISCHARGE SUMMARY - ANTICIPATE DISCHARGE DATE FOR 03/09/2018* DIAGNOSES 1. A 39-week 6-day gestation. 2. Unremitting sciatica. 3. Induction of labor. 4. Utjnx-asp-uwayszozhcn-age fetus suspect. 5. tachycardia and decreased variability second stage of labor. 6. Maternal fever (38 degrees centigrade in second stage of labor). 7. Right occiput posterior position. PROCEDURE: Low vacuum-assisted vaginal delivery with rotation from the ROP to OA; midline second-degree laceration repair; living macrosomic infant (Sree). COMPLICATIONS: None. HISTORY: Patient is a 27-year-old 2, para 1, status post delivery in 2017 of an 8-pound 12-ounce boy. She has been cared for at [facility] and in the last few weeks has developed right-sided sciatica and unremitting back pain. Glucose challenge test was 115. Donny maneuvers found to be larger than average. Cervix was acceptable for induction with dilation at 2 cm, 30%, -1 station. Pelvis was assessed and found to be adequate for 8 pound plus fetus. HOSPITAL COURSE: Patient was begun on serial doses of misoprostol for cervical ripening and induction. Initial heart tracings were 145 with moderate variability, no decelerations. Contractions intensified, and patient was given epidural for pain relief. She continued on to 8 cm, then paused to proceed on to completion. She was allowed to labor down. At 1940, she had pelvic pressure and urge to push. She pushed with good effort. heart tracing changes developed that included tachycardia and decreased variability. Progress was slow but present. Due to concerns about reserve, patient underwent an informed consent session concerning vacuum delivery. She approved of vacuum. Kiwi rigid cup vacuum was applied flexion point. Moderate traction was then applied. There was one popoff. Head delivered fairly uneventfully. There was a shallow midline laceration. Shoulders were tight but not dystocia. Dr. Castro of the pediatric team was present to evaluate the fetus; reference his notes. A 10-pound living baby boy was born, scoring Apgars of 9 and 9. Venous cord gas was pH 7.32, base excess of -5.2. Arterial cord blood gas was drawn but results not found. Cord was three vessel with no entanglement. Placenta was delivered intact and grade 2. Total blood loss was 450. Uneventful repair of midline perineal laceration was done with Vicryl. For a complete description, reference typewritten delivery note. Post delivery, patient had ice applied to the perineum and later Sitz bath. She nursed without difficulty. As expected, she was somewhat shaken by a difficult vacuum delivery. We gave encouragement and reviewed the events. On day number two, patient was doing well. She was defecating without difficulty. She was nursing well. She desired discharge home. Warning sign and callback instructions were reviewed and she will be seen in the office next week. Placental pathology and cultures pending DISCHARGE MEDICATIONS 1. Motrin 600 mg p.o. q.6 hours. 2. Oxycodone 5 mg 1 tab q.4 hours p.r.n. pain. 3. Colace 250 mg p.o. b.i.d. 4. Milk of magnesia 30 mL p.o. at bedtime. TD: 03/08/2018 19:23 LEON
--- NOTE | 2018-03-09 07:41 | Discharge Plan ---
Discharge Plan Disposition: 01 Home, Self Care Condition: Good Diet: Regular Activity Restrictions: No Restrictions Shower Restrictions: No Driving Restrictions: No Weight Bearing: Full Weight No Smoking: If you smoke, Please STOP! Call for help. Follow-up with: Lucien Balbuena MD [Provider Admit Priv/Credential] -
[2018-03-09] MEDS: DOCUSATE SODIUM 100 MG CAPSULE PO SCH (08:25)
[2018-03-09 08:30] VITALS: BP 116/42
[2018-03-09] MEDS: HYDROcod/ACETAM 5/325 MG TABLET PO PRN (10:23)
--- NOTE | 2018-03-09 14:52 | Labor Flowsheet ---
Labor Flowsheet Datetime Report Generated by CPN: 03/09/2018 14:52 Datetime: 03/09/2018 08:28 VITAL SIGNS NBP Sys/Caity/Mean (mmHg): 116 : 42 : 60 Pulse: 78 LaborFlag: Labor Datetime: 03/07/2018 23:19 SpO2 (%): 96 Datetime: 03/07/2018 20:15 UTERINE ACTIVITY Monitor Mode: External Frequency (min): 2-3 Quality: Strong Duration (sec): 70-170 Pattern: Normal: <= 5 Contractions in 10 Minutes Resting Tone (Palpate): Relaxed ASSESSMENT A Monitor Mode: Telemetry FHR Baseline Rate : 180 FHR Baseline Changes: Tachycardia Variability: Minimal - Undetectable to <=5 bpm Accelerations: None Decelerations: Early; Variable Category: Category II Datetime: 03/07/2018 20:14 Vacuum: On Datetime: 03/07/2018 20:10 STAGE 2 Pushing: Coached on Pushing Pushing Position: Pushing with Contractions Pushing Progress: No Descent with Effective Pushing Datetime: 03/07/2018 20:00 Provider Notified (Name): Dr. Castro Datetime: 03/07/2018 19:51 COMMUNICATION Communication: Call/Page Placed to Provider Communication Comments: OR team called, Milagrosa CNM called Datetime: 03/07/2018 19:45 ANESTHESIA Anesthesia Plans: Epidural Anesthesia Comments: epidural turned off per Dr. Balbuena Datetime: 03/07/2018 19:30 Resting Tone IUP (mmHg): Actions for Decelerations: Side to Side Vibroacoustic Stim: Datetime: 03/07/2018 19:28 I/O Interventions: Bajwa Discontinued Patient Care Comments: 250ml Datetime: 03/07/2018 19:26 VAGINAL EXAM Dilatation (cm): 10.0 Effacement (%): 100 Station: 3 Exam by: Dr. Balbuena Position 'A': Right Occipital Posterior Datetime: 03/07/2018 19:25 Temperature (C): 37.1 Datetime: 03/07/2018 19:21 PAIN Pain Scale: 8 Pain Presence: Intermittent Pain Type: Contraction Pain Location: Back Pain Relief Measures: Epidural Given Pain Coping: Talking Through Contractions; Breathing Through Contractions Amniotic Fluid Color: Clear Amniotic Fluid Amount: Small MATERNAL ASSESSMENT Level of Consciousness: Fully Conscious DTR's/Clonus: DTRs 2+; No Clonus Headache: Denies Breath Sounds, Left: Clear and Equal Breath Sounds, Right: Clear and Equal Nausea/Vomiting: Denies RUQ Epigastric Pain: Denies Comfort Measures: Breathing/Relaxation Datetime: 03/07/2018 19:15 Oxygen Method: Room Air Datetime: 03/07/2018 18:20 Stage 2 Comments: Continual anterior lip that extends to the right side. 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 Anesthesia Level Check: T12 Datetime: 03/07/2018 17:40 Vaginal Bleeding: Moderate Cervix, Position: Anterior Procedures: Sterile Vag Exam Patient Position/Activity: Right Lateral Hygiene: Maci Care Datetime: 03/07/2018 16:29 Stage of : Labor Respirations: 18 Temperature Route: Oral Datetime: 03/07/2018 16:00 Cervix, Consistency: Soft Datetime: 03/07/2018 14:55 Monitor Interventions for UA: [place] Adjusted Datetime: 03/07/2018 14:04 MEDICATIONS Analgesics/Sedatives: Tylenol (mg) @ 650 Datetime: 03/07/2018 13:08 Epidural Procedure: Cath Placed Datetime: 03/07/2018 13:00 PROCEDURE TIME OUT Procedure Verify: Correct Patient Identity; Accurate Procedure Consent Form; Agreement on Procedure to be Done; Correct Patient Position; Addressed Need to Administer Antibiotics or Fluids for Irrigat ion; Safety Precautions Based on Patient History or Medication Use Epidural Positioning: Sitting Datetime: 03/07/2018 12:30 Pain Goal: 7 PATIENT CARE IV/Blood Work: IV Bolus Started; New IV Bag Hung Datetime: 03/07/2018 10:26 Pitocin Checklist: At Least 1 Acceleration of 15 bpm x 15 Seconds in 30 Minutes or Adequate Variabi lity Contraction Comments: Palpate mild to mod Strip Reviewed by: Sudhir TEACHING Teaching Comments: instructed in birthing ball Datetime: 03/07/2018 09:39 Membranes Ruptured Date/Time: 03/07/2018 18:20 Station Vacuum/Forceps Applied: 3 Datetime: 03/07/2018 09:05 Cervical Ripening Agents: Cytotec @ Medication Comments: buccal
== END 2018-03-09 13:30 | disposition home or self-care (01) | DRG 806 ==
LOC: WFO 08:17 → FBP 08:18 → OBSVTOIN 12:30
PROVIDERS: ADMIT Obstetrics & Gynecology; ATTEND Obstetrics & Gynecology
PROC: 10D07Z6 Extraction of Products of Conception, Vacuum, Via Natural or Artificial Opening (ICD-10-PCS; principal; 2018-03-08)
PROC: 0KQM0ZZ Repair Perineum Muscle, Open Approach (ICD-10-PCS; 2018-03-08)
DX: O75.89 Other specified complications of labor and delivery (principal); O75.2 Pyrexia during labor, not elsewhere classified; Z37.0 Single live birth; M54.30 Sciatica, unspecified side; O64.0XX0 Obstructed labor due to incomplete rotation of fetal head, not applicable or unspecified; O66.2 Obstructed labor due to unusually large fetus; O76 Abnormality in fetal heart rate and rhythm complicating labor and delivery; O70.1 Second degree perineal laceration during delivery; Z3A.39 39 weeks gestation of pregnancy
CPT/HCPCS: 36415; 85025

== ENCOUNTER 2020-01-05 16:56 | Emergency (ER) | payer OTHER ==
[2020-01-05 17:07] VITALS: BP 130/68
[2020-01-05] MEDS ORDERED: predniSONE 20 MG TABLET PO STA (17:17)
--- NOTE | 2020-01-05 17:19 | ED Physician Documentation ---
PD HPI SKIN - Stated complaint Stated Complaint: RASH - Chief complaint Chief Complaint: Wound - History obtained from History obtained from: Patient - Additional information Additional information: Itchy last night and developed a rash on the forearms, thighs and trunk today. She was on amoxicillin a week ago. Otherwise no new exposures. Lesions in the mouth or on the palms or soles. Review of Systems Constitutional: reports: Reviewed and negative Eyes: reports: Reviewed and negative Ears: reports: Reviewed and negative Nose: reports: Reviewed and negative Throat: reports: Reviewed and negative PD PAST MEDICAL HISTORY - Past Medical History Past Medical History: No Cardiovascular: None Respiratory: None Neuro: None Endocrine/Autoimmune: None GI: None : None Musculoskeletal: None Derm: None - Past Surgical History Past Surgical History: No - Present Medications Home Medications: Ambulatory Orders Medication Instructions Recorded Confirmed Magnesium Oxide [Magnesium] 500 mg PO 04/22/17 Omeprazole [PriLOSEC] 20 mg PO DAILY #14 capsule 04/22/17 Pnv No.95/Ferrous Fum/Folic AC 1 each PO 04/22/17 [ Tablet] Potassium Chloride 20 meq PO 04/22/17 Doxepin [SINEquan] 10 mg PO TID PRN #20 capsule 01/05/20 predniSONE [Deltasone] 60 mg PO DAILY 5 Days #15 tablet 01/05/20 - Allergies Allergies/Adverse Reactions: Allergies Allergy/AdvReac Type Severity Reaction Status Date / Time No Known Drug Allergies Allergy Verified 01/05/20 17:07 - Social History Does the pt smoke?: No Smoking Status: Never smoker Does the pt drink ETOH?: No Does the pt have substance abuse?: No - Immunizations Immunizations are current?: Yes - POLST Patient has POLST: No PD ED PE NORMAL - Vitals Vital signs reviewed: Yes - General General: Alert and oriented X 3, No acute distress - HEENT HEENT: Pharynx benign - Extremities Extremities: Other (Nonspecific small macular rash on the forearms, no dermatographia.) - Neuro Neuro: Alert and oriented X 3, Normal speech Results - Vitals Vitals: Vital Signs - 24 hr 01/05/20 17:03 Temperature 36.8 C Heart Rate 75 Respiratory 17 Rate Blood Pressure 130/68 O2 Saturation 100 Oxygen O2 Source Room air Departure - Departure Disposition: 01 Home, Self Care Clinical Impression: Rash and nonspecific skin eruption Condition: Good Record reviewed to determine appropriate education?: Yes Instructions: ED Dermatitis Non Specific Rash Prescriptions: predniSONE [Deltasone] 60 mg PO DAILY 5 Days #15 tablet Doxepin [SINEquan] 10 mg PO TID PRN #20 capsule PRN Reason: Itching Comments: As discussed, this could still be a fixed drug eruption from the amoxicillin. Otherwise it is a nonspecific rash. Not really consistent with fydf-ecck-xnn-mouth disease at this point. Return if worsening. Do not drink or drive while taking the anti-itching medicine as it will sedate you slightly.
== END 2020-01-05 17:26 | disposition home or self-care (01) ==
LOC: ED 16:56
DX: R21 Rash and other nonspecific skin eruption (principal)
CPT/HCPCS: 99282; 99283; J7512

== ENCOUNTER 2021-04-17 14:06 | Outpatient (CLI) | payer OTHER ==
[2021-04-19 10:26] LABS: NIL 0.02 IU/mL; TB1-NIL <0.00 IU/mL; TB2-NIL <0.00 IU/mL
== END 2021-04-17 14:07 | disposition home or self-care (01) ==
LOC: LAB.N 14:06
PROVIDERS: ATTEND Family Medicine
DX: Z11.1 Encounter for screening for respiratory tuberculosis (principal)
CPT/HCPCS: 36415; 86480

== ENCOUNTER 2022-02-04 10:27 | Outpatient (CLI) | payer OTHER ==
[2022-02-04 18:07] LABS: BASOPHILS % (AUTO) 0.4 %; EOSINOPHILS # (AUTO) 0.1 10^3/uL (0.0-0.7); EOSINOPHILS % (AUTO) 1.9 %; HCT - HEMATOCRIT 47.6 % (37.0-47.0); HGB - HEMOGLOBIN 14.8 g/dL (12.0-16.0); LYMPHOCYTES # (AUTO) 1.4 10^3/uL (1.5-3.5); LYMPHOCYTES % (AUTO) 30.5 %; MEAN CORPUSCULAR HEMOGLOBIN 29.5 pg (27.0-31.0); MEAN CORPUSCULAR HGB CONC 31.1 g/dL (32.0-36.0); MEAN CORPUSCULAR VOLUME 94.8 fL (81.0-99.0); MEAN PLATELET VOLUME 10.3 fL (7.9-10.8); MONOCYTES # (AUTO) 0.3 10^3/uL (0.0-1.0); MONOCYTES % (AUTO) 6.5 %; NEUTROPHILS # (AUTO) 2.8 10^3/uL (1.5-6.6); NEUTROPHILS % (AUTO) 60.5 %; PLT - PLATELET COUNT 248 10^3/uL (130-450); RED BLOOD COUNT 5.02 10^6/uL (4.20-5.40); RED CELL DISTRIBUTION WIDTH 13.2 % (12.0-15.0); WHITE BLOOD COUNT 4.7 x10^3/uL (4.8-10.8)
[2022-02-04 18:32] LABS: ALBUMIN 4.4 g/dL (3.2-5.5); ALBUMIN/GLOBULIN RATIO 1.6 (1.0-2.2); ALKALINE PHOSPHATASE 50 IU/L (42-121); ALT ALANINE AMINOTRANSFERASE 18 IU/L (10-60); AST ASPARTATE AMINOTRANSFERASE 19 IU/L (10-42); BILIRUBIN,TOTAL 0.9 mg/dL (0.2-1.0); BUN - BLOOD UREA NITROGEN 14 mg/dL (6-20); CALCIUM 9.7 mg/dL (8.5-10.3); CARBON DIOXIDE - CO2 29 mmol/L (21-32); CHLORIDE 100 mmol/L (101-111); CHOL/HDL RATIO 2.3 (<4.4); CHOLESTEROL 224 mg/dL; CREATININE 0.7 mg/dL (0.4-1.0); GFR - MDRD 98 (>89); GLUCOSE 85 mg/dL (70-100); HDL CHOLESTEROL 96 mg/dL; LDL CHOLESTEROL,CALCULATED 120 mg/dL; LDL/HDL RATIO 1.3 (<4.4); POTASSIUM 4.4 mmol/L (3.5-5.0); SODIUM 134 mmol/L (135-145); TOTAL PROTEIN 7.1 g/dL (6.7-8.2); TRIGLYCERIDES 40 mg/dL; VLDL CHOLESTEROL 8 mg/dL
== END 2022-02-04 10:28 | disposition home or self-care (01) ==
LOC: LAB.N 10:27
PROVIDERS: ATTEND Physician Assistant
DX: E78.5 Hyperlipidemia, unspecified (principal); E55.9 Vitamin D deficiency, unspecified; R79.9 Abnormal finding of blood chemistry, unspecified; Z11.1 Encounter for screening for respiratory tuberculosis
CPT/HCPCS: 36415; 80053; 80061; 81599; 82306; 83721; 85025; 86480

== ENCOUNTER 2022-02-04 10:43 | Outpatient (CLI) | payer OTHER ==
[2022-02-06 09:50] LABS: THYROID STIMULATING HORMONE 2.85 uIU/mL (0.34-5.60)
== END 2022-02-04 23:59 | disposition home or self-care (01) ==
LOC: LAB.N 10:43
PROVIDERS: ATTEND Physician Assistant
DX: Z13.29 Encounter for screening for other suspected endocrine disorder (principal)
CPT/HCPCS: 36415; 84443

== ENCOUNTER 2023-09-17 14:21 | Outpatient (CLI) | payer OTHER ==
[2023-09-18 12:09] LABS: MEASLES ANTIBODIES IGG >300.0 AU/mL (Immune >16.4); MUMPS ANTIBODIES IGG 21.3 AU/mL (Immune >10.9); VARICELLA-ZOSTER AB IGG 1593 index (Immune >165)
== END 2023-09-17 14:22 | disposition home or self-care (01) ==
LOC: LAB.N 14:21
PROVIDERS: ATTEND Physician Assistant
DX: Z13.9 Encounter for screening, unspecified (principal)
CPT/HCPCS: 36415; 81599; 86317; 86735; 86762; 86765; 86787